=== PATIENT | female | born 1990 | race Caucasian/White ===

== ENCOUNTER → 2021-03-17 | Outpatient (CLI) | payer BC ==
--- NOTE | 2021-03-17 12:52 | RAD ---
EXAM: Obstetrics sonogram. HISTORY: Unsure dates. TECHNIQUE: Transabdominal sonographic imaging of a gravid uterus was performed. COMPARISON: None. FINDINGS: The uterus measures 11.4 x 7.2 x 5.7 cm. The cervix is closed and measures 5.7 cm in length . There is a single intrauterine gestational sac with pole and yolk sac. The gestational sac is normal in configuration and location. There is no subchronic hematoma. The yolk sac is unremarkable. The crown-rump length is 1.77 cm, corresponding with a gestational age of 8 weeks and 2 days a nd due date is 10/25/2021. There is a normal heart rate of 163 bpm. The maternal ovaries are unre markable. There is no pelvic free fluid. IMPRESSION: Single intrauterine fetus with normal heart rate and gestational age based on ultrasound measurements of 8 weeks and 2 days. Electronically signed by: Kylah Montiel MD (03/17/2021 12:50 PM) [id number]
== END ==
LOC: US 10:58
PROVIDERS: ATTEND Family Medicine
DX: Z34.91 Encounter for supervision of normal pregnancy, unspecified, first trimester (principal); Z3A.08 8 weeks gestation of pregnancy
CPT/HCPCS: 76801